=== PATIENT | female | born 1970 | race Caucasian/White ===

== ENCOUNTER 2017-08-31 20:49 | Emergency (ER) | payer SELFPAY ==
[~2017-08-31] VITALS: Ht 172.7 cm; Wt 90.9 kg
[~2017-08-31 20:49] MED LIST: ASPIRIN 32325 MG/TAB PO; CALCIUM 500500 M1 PO; CEPHALEXIN500 M1 PO; IBU-2200 MG PO; KLONOPIN1 MG PO; MULTIPLE VITAMI1 CAP PO; NORCO 325 MG-51 TAB PO; NORCO 325 MG-7.1 TAB; NORCO 325 MG-7.1 TAB PO; PERCOCET 325 MG1 TA2 PO; PRIL40; SOMA350 MG PO
[2017-08-31 21:12] VITALS: BP 159/83; TEMP 97.5
[2017-08-31] MEDS ORDERED: CEPHALEXIN500 M1 PO (21:43)
[2017-08-31 22:01] VITALS: PULSE 66
== END 2017-08-31 22:00 | disposition home or self-care (01) ==
LOC: COL.ER 20:49
DX: M27.3 Alveolitis of jaws (principal); F41.9 Anxiety disorder, unspecified; F17.210 Nicotine dependence, cigarettes, uncomplicated; Z88.0 Allergy status to penicillin; Z79.82 Long term (current) use of aspirin